=== PATIENT | female | born 1995 | race Caucasian/White ===

== ENCOUNTER 2018-02-25 14:43 | Emergency (ER) | payer BC, MEDICAID ==
[~2018-02-25] VITALS: Ht 160 cm; Wt 65.8 kg
[2018-02-25 15:29] VITALS: BP 112/62
[2018-02-25 16:17] LABS: Urine Bacteria NONE SEEN /hpf (None Seen); Urine Blood Negative /uL (Negative); Urine Mucus FEW (None Seen); Urine Specific Gravity 1.037 (1.001-1.035); Urine WBC 37 /hpf (0 - 5)
== END 2018-02-25 20:45 | disposition home or self-care (01) ==
LOC: ER 14:53
DX: J02.9 Acute pharyngitis, unspecified (principal); M54.9 Dorsalgia, unspecified; H66.93 Otitis media, unspecified, bilateral; J45.909 Unspecified asthma, uncomplicated
CPT/HCPCS: 81001; 81025